=== PATIENT | female | born 1930 | race Caucasian/White ===

== ENCOUNTER 2016-10-03 23:05 | Emergency (ER) | payer MEDICARE, OTHER ==
[~2016-10-03] VITALS: Ht 162.6 cm; Wt 61.8 kg
[2016-10-03] MEDS ORDERED: MOBIC15 MG PO (23:11)
[2016-10-03] MEDS ORDERED: SYNTHROID0.1 MG/TAB PO (23:12)
[2016-10-03] MEDS ORDERED: NORVASC 5MG5 MG/TAB PO (23:12)
[2016-10-03 23:13] VITALS: TEMP 98
[2016-10-03] MEDS ORDERED: XALATAN EYE DROPS (23:13)
[2016-10-03] MEDS ORDERED: LIPITOR20 MG PO (23:13)
[2016-10-04] MEDS ORDERED: NORCO 325 MG-51 TAB PO (01:10)
[2016-10-04 01:20] VITALS: BP 140/80; PULSE 76
== END 2016-10-04 01:20 | disposition home or self-care (01) ==
LOC: COL.ER 23:05
DX: M23.92 Unspecified internal derangement of left knee (principal); M17.12 Unilateral primary osteoarthritis, left knee; I10 Essential (primary) hypertension
CPT/HCPCS: J1170; L1830